=== PATIENT | female | born 1990 | race Caucasian/White ===

== ENCOUNTER 2018-11-21 20:02 | Observation (INO) | payer OTHER ==
[2018-11-21 20:57] LABS: Amphetamine,Urine NEGATIVE (NEGATIVE); Barbiturate,Urine NEGATIVE (NEGATIVE); Benzodiazepine,Urine NEGATIVE (NEGATIVE); Cocaine,Urine NEGATIVE (NEGATIVE); Methadone,Urine NEGATIVE (NEGATIVE); Opiate,Urine NEGATIVE (NEGATIVE); PCP,Urine NEGATIVE (NEGATIVE); THC,Urine NEGATIVE (NEGATIVE)
[2018-11-21 21:04] LABS: Appearance CLEAR (CLEAR); Bilirubin NEGATIVE (NEGATIVE); Blood NEGATIVE Ery/ul (0-5); Epithelial Cells RARE /HPF (FEW); Glucose NEGATIVE (NEGATIVE); Ketones NEGATIVE (NEGATIVE); Leukocyte Esterase NEGATIVE (NEGATIVE); Mucus SLIGHT /HPF (NEGATIVE); Nitrite NEGATIVE (NEGATIVE); Protein,Urine Dip NEGATIVE (Negative); Specific Gravity 1.017 (1.005-1.025); Urobilinogen 2 mg/dL (0-1)
[2018-11-22 00:53] VITALS: BP 109/68; PULSE 87
== END 2018-11-22 00:45 | disposition home or self-care (01) ==
LOC: OB 20:02
PROVIDERS: ADMIT Family Medicine; ATTEND Family Medicine
DX: Z34.83 Encounter for supervision of other normal pregnancy, third trimester (principal)
CPT/HCPCS: 80307; 81001; G0378

== ENCOUNTER 2018-12-18 10:58 | Observation (INO) | payer OTHER ==
[2018-12-18 12:32] VITALS: BP 114/72; PULSE 92
== END 2018-12-18 12:20 | disposition home or self-care (01) ==
LOC: UNDOADMOB 10:58 → OB 10:58 → UNDODISOB 12:20
PROVIDERS: ADMIT Family Medicine; ATTEND Family Medicine
DX: Z34.03 Encounter for supervision of normal first pregnancy, third trimester (principal)
CPT/HCPCS: 83986; G0378

== ENCOUNTER 2018-12-22 17:51 | Observation (INO) | payer OTHER ==
[2018-12-22 18:35] LABS: Appearance SLIGHTLY CLOUDY (CLEAR); Bacteria FEW /HPF (NEGATIVE); Bilirubin NEGATIVE (NEGATIVE); Blood NEGATIVE Ery/ul (0-5); Epithelial Cells MODERATE /HPF (FEW); Glucose NEGATIVE (NEGATIVE); Ketones SMALL (NEGATIVE); Leukocyte Esterase NEGATIVE (NEGATIVE); Mucus SLIGHT /HPF (NEGATIVE); Nitrite NEGATIVE (NEGATIVE); Protein,Urine Dip NEGATIVE (Negative); RBC 0-2 /HPF (0-2); Specific Gravity 1.014 (1.005-1.025); Urobilinogen NEGATIVE mg/dL (0-1)
[2018-12-22 19:10] VITALS: BP 110/75; PULSE 90
== END 2018-12-22 19:08 | disposition home or self-care (01) ==
LOC: OB 17:51
PROVIDERS: ADMIT Family Medicine; ATTEND Family Medicine
DX: Z34.83 Encounter for supervision of other normal pregnancy, third trimester (principal)
CPT/HCPCS: 81001; 87086; G0378

== ENCOUNTER 2019-01-01 02:18 | Observation (INO) | payer OTHER ==
[2019-01-01 03:22] LABS: Appearance SLIGHTLY CLOUDY (CLEAR); Bilirubin NEGATIVE (NEGATIVE); Blood NEGATIVE Ery/ul (0-5); Epithelial Cells RARE /HPF (FEW); Glucose NEGATIVE (NEGATIVE); Ketones NEGATIVE (NEGATIVE); Leukocyte Esterase NEGATIVE (NEGATIVE); Mucus SLIGHT /HPF (NEGATIVE); Nitrite NEGATIVE (NEGATIVE); Protein,Urine Dip NEGATIVE (Negative); Specific Gravity 1.008 (1.005-1.025); Urobilinogen NEGATIVE mg/dL (0-1)
[2019-01-01 07:36] VITALS: BP 100/65; PULSE 81
== END 2019-01-01 07:35 | disposition home or self-care (01) ==
LOC: OB 02:18
PROVIDERS: ADMIT Family Medicine; ATTEND Family Medicine
DX: Z34.83 Encounter for supervision of other normal pregnancy, third trimester (principal)
CPT/HCPCS: 81001; 83986; G0378

== ENCOUNTER 2019-02-02 12:40 | Observation (INO) | payer OTHER ==
[2019-02-02 13:20] VITALS: BP 118/84; PULSE 80
[2019-02-02 14:23] LABS: Appearance CLEAR (CLEAR); Bilirubin NEGATIVE (NEGATIVE); Blood NEGATIVE Ery/ul (0-5); Epithelial Cells RARE /HPF (FEW); Glucose NEGATIVE (NEGATIVE); Ketones NEGATIVE (NEGATIVE); Leukocyte Esterase NEGATIVE (NEGATIVE); Nitrite NEGATIVE (NEGATIVE); Protein,Urine Dip NEGATIVE (Negative); Specific Gravity 1.006 (1.005-1.025); Urobilinogen NEGATIVE mg/dL (0-1)
[2019-02-02 14:38] LABS: Amphetamine,Urine NEGATIVE (NEGATIVE); Barbiturate,Urine NEGATIVE (NEGATIVE); Benzodiazepine,Urine NEGATIVE (NEGATIVE); Cocaine,Urine NEGATIVE (NEGATIVE); Methadone,Urine NEGATIVE (NEGATIVE); Opiate,Urine NEGATIVE (NEGATIVE); PCP,Urine NEGATIVE (NEGATIVE); THC,Urine NEGATIVE (NEGATIVE)
== END 2019-02-02 14:40 | disposition home or self-care (01) ==
LOC: OB 12:40
PROVIDERS: ADMIT Family Medicine; ATTEND Family Medicine
DX: Z34.83 Encounter for supervision of other normal pregnancy, third trimester (principal)
CPT/HCPCS: 80307; 81001; G0378

== ENCOUNTER 2019-02-05 06:42 | Inpatient (IN) | payer OTHER ==
[2019-02-05] MEDS ORDERED: TYLENOL EXTRA STRENGTH 500 MG PO PRN ×2 (10:59→15:51)
[2019-02-05] MEDS ORDERED: Zofran 4 MG/2 ML VIAL IV PRN (10:59)
[2019-02-05] MEDS ORDERED: XYLOCAINE 1% HCL 20 ML MDV IJ PRN (10:59)
[2019-02-05] MEDS ORDERED: Phenergan 25 MG INJ IV PRN (10:59)
[2019-02-05] MEDS ORDERED: Nubain 10 MG/ML IV PRN (10:59)
[2019-02-05] MEDS ORDERED: STADOL 2 MG IV PRN (10:59)
[2019-02-05] MEDS ORDERED: OB EPIDURAL NAROPIN/SUFENTANIL IN NACL EPIDURAL PRN (10:59)
[2019-02-05] MEDS ORDERED: Ephedrine Sulfate 50 MG/ML IV PRN (10:59)
[2019-02-05] MEDS ORDERED: Lactated Ringers 1,000 ML IV ONE (10:59)
[2019-02-05] MEDS ORDERED: PITOCIN 30 UNITS/ LR 500 ML 500 ML IV SCH (11:00)
[2019-02-05] MEDS ORDERED: Lactated Ringers 1,000 ML IV SCH (11:00)
[2019-02-05 11:52] LABS: Hematocrit 37.1 % (35-47); Hemoglobin 11.7 gm/dl (12.0-16.0); Mean Corpuscular Hemoglobin 28.3 pg (26-32); Mean Corpuscular Hgb Concent. 31.5 g/dl (32-36); Mean Platelet Volume 12.5 fl (6-9.5); Platelet Count 205 K/mm3 (150-450); Red Blood Count 4.12 M/mm3 (4.1-5.4); Red Cell Distribution Width 13.3 % (11.5-14.0); White Blood Count 15.9 K/mm3 (4.0-10.5)
[2019-02-05 13:01] LABS: Lymphocytes 20 % (24-44); Monocyte 2 % (0.0-12.0); Neutrophils 78 % (36.0-66.0); Total Cells Counted 100
[2019-02-05 13:02] LABS: Platelet Estimate NORMAL (NORMAL)
[2019-02-05] MEDS ORDERED: Mylicon 80MG PO PRN (15:51)
[2019-02-05] MEDS ORDERED: TUCKS TP PRN (15:51)
[2019-02-05] MEDS ORDERED: Dulcolax 10 MG SUPP PR PRN (15:51)
[2019-02-05] MEDS ORDERED: Ambien 10 MG PO PRN (15:51)
[2019-02-05] MEDS ORDERED: LANSINOH 40 GM TOP PRN (15:51)
[2019-02-05] MEDS ORDERED: Dermoplast Spray TP PRN (15:51)
[2019-02-05] MEDS ORDERED: CORTISONE 1% CREAM TP PRN (15:51)
[2019-02-05] MEDS ORDERED: Anucort-HC SUPPOSITORY PR PRN (15:51)
[2019-02-05] MEDS: MOTRIN 400 MG PO PRN (20:23)
[2019-02-05] MEDS: Colace 100 MG PO SCH (22:18)
[2019-02-06] MEDS ORDERED: MOTRIN 400 MG ONE (04:05)
[2019-02-06] MEDS: MOTRIN 400 MG PO PRN ×2 (04:06→18:17)
[2019-02-06 05:55] LABS: Hematocrit 30.7 % (35-47); Hemoglobin 9.6 gm/dl (12.0-16.0); Mean Cell Volume 91.1 fl (78-100); Mean Corpuscular Hgb Concent. 31.3 g/dl (32-36); Platelet Count 201 K/mm3 (150-450); Red Blood Count 3.37 M/mm3 (4.1-5.4); Red Cell Distribution Width 13.2 % (11.5-14.0); White Blood Count 16.1 K/mm3 (4.0-10.5)
[2019-02-06 05:58] LABS: Mean Corpuscular Hemoglobin 28.4 pg (26-32)
[2019-02-06 06:44] LABS: ANISOCYTOSIS 1+; Lymphocytes 24 % (24-44); Monocyte 3 % (0.0-12.0); Neutrophils 73 % (36.0-66.0); Platelet Estimate NORMAL (NORMAL); Total Cells Counted 100; Toxic Granulation 1+
[2019-02-06] MEDS: NORCO 5/325 MG PO PRN ×2 (07:21→22:29)
[2019-02-06] MEDS ORDERED: NORCO 5/325 MG ONE (07:21)
[2019-02-06] MEDS: Colace 100 MG PO SCH ×2 (10:10→22:30)
[2019-02-06] MEDS: FERREX 150 PO SCH (10:10)
[2019-02-06 20:19] VITALS: O2SAT 97
[2019-02-07] MEDS: MOTRIN 400 MG PO PRN (05:01)
--- NOTE | 2019-02-07 07:54 | PCM.DS ---
Discharge Summary Date of Admission: 02/05/19 10:52 Admitting Physician: TAMARA MAURER Consults: Consults on Case 02/05/19 11:02 Notify Anesthesia Provider PRN 02/05/19 15:51 Notify Physician ROUTINE Primary Care Provider: TAMARA MAURER Allergies Allergies No Known Drug Allergies Allergy (Verified 02/02/19 14:06) Hospital Summary - Hospital Course Hospital Course: arrived in labor at 40 wks, had uncomplicated vaginal delivery. doing well , . no problems or concerns. - Vitals & Intake/Output Vital Signs: Vital Signs Temperature 97.7 F 02/07/19 02:00 Pulse Rate 78 02/07/19 02:00 Respiratory Rate 16 02/07/19 02:00 Blood Pressure 106/63 02/07/19 02:00 O2 Sat by Pulse Oximetry 97 02/06/19 20:00 Intake & Output: Intake & Output 02/04/19 02/05/19 02/06/19 02/07/19 11:59 11:59 11:59 11:59 Output Total 75 Balance -75 Weight 74.843 kg - Lab Result Diagrams: 02/06/19 05:00 - Procedures and Test Procedures and Tests throughout Hospitalization: Therapy Orders & Screens 02/05/19 16:33 Standby Routine Comment: Diagnosis: labor Discharge Exam General Appearance: no apparent distress, alert Skin Exam: normal color, warm, dry Respiratory Exam: normal breath sounds, lungs clear, No respiratory distress Cardiovascular Exam: regular rate/rhythm, normal heart sounds Gastrointestinal/Abdomen Exam: soft, No tenderness, No mass Extremity Exam: normal inspection, normal range of motion Final Diagnosis/Problem List - Final Discharge Diagnosis/Problem (1) Vaginal delivery Current Visit: Yes Status: Acute Code(s): O80 - ENCOUNTER FOR FULL-TERM UNCOMPLICATED DELIVERY - Discharge Disposition: Home, Self-Care Condition: Stable Prescriptions: Continue Vits W-Ca,Fe,FA(<1Mg) [] 1 each PO DAILY #30 tablet Follow up with: TAMARA MAURER MD [Primary Care Provider] - 1 Week
[2019-02-07] MEDS: Colace 100 MG PO SCH (08:36)
[2019-02-07] MEDS: FERREX 150 PO SCH (08:36)
[2019-02-07 08:54] VITALS: BP 115/75; PULSE 75
== END 2019-02-07 15:05 | disposition home or self-care (01) | DRG 807 ==
LOC: OB 06:42 → OBSVTOIN 10:52
PROVIDERS: ADMIT Family Medicine; ATTEND Family Medicine
PROC: 10E0XZZ Delivery of Products of Conception, External Approach (ICD-10-PCS; principal; 2019-02-05)
DX: O69.81X0 Labor and delivery complicated by cord around neck, without compression, not applicable or unspecified (principal); Z37.0 Single live birth; Z3A.40 40 weeks gestation of pregnancy
CPT/HCPCS: 36415; 80307; 81001; 81003; 85025; 94799; G0378; J2590; J2795; A9270-GY

== ENCOUNTER 2019-02-23 15:35 | Emergency (ER) | payer OTHER ==
[2019-02-23 16:33] VITALS: O2SAT 96
[2019-02-23] MEDS ORDERED: TORAdol 30 mg Injection IM ONE (16:46)
[2019-02-23] MEDS ORDERED: TORAdol 30 mg Injection ONE (16:53)
--- NOTE | 2019-02-23 16:58 | ERPHSYRPT ---
- History of Present Illness Time Seen by Provider: 02/23/19 16:30 Source: patient Exam Limitations: clinical condition Patient Subjective Stated Complaint: headache starting at 1400 today.. has had headaches in the past due to her eyeglass preascription.. states this feels different. light bothers her eyes. pain in her right upper arm. no injury. Triage Nursing Assessment: alert and in no distress. states GLASER starting at 1400. pain in forehead and back of head. eyes sensitive to light. ROMULO. neuro intact. states pain in right upper arm.. 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 DENIES BLURRED VISION, PHOTOPHOBIA, FEVER, VOMITING, OR NECK STIFFNESS. HAS FREQUENT HEADACHES WEEKLY FOR YEARS. Timing/Duration: day(s) Quality: throbbing Head Pain Location: frontal, occipital Severity of Pain-Max: moderate Severity of Pain-Current: moderate Recent Head Trauma: frequent headaches Modifying Factors: Improves With: exposure to light Associated Symptoms: nausea/vomiting Previous symptoms: same symptoms as today Allergies/Adverse Reactions: No Known Drug Allergies Allergy (Verified 02/02/19 14:06) Immunizations Up to Date: Yes - Review of Systems Constitutional: No Fever, No Chills Eyes: No Symptoms Ears, Nose, & Throat: No Symptoms Respiratory: No Symptoms, No Cough, No Dyspnea Cardiac: Orthopnea, No Chest Pain, No Edema, No Syncope Abdominal/Gastrointestinal: Nausea, No Abdominal Pain, No Vomiting, No Diarrhea Genitourinary Symptoms: No Dysuria Musculoskeletal: No Symptoms, No Back Pain, No Neck Pain Skin: No Rash Neurological: Headache, No Dizziness, No Focal Weakness, No Sensory Changes Psychological: No Symptoms Endocrine: No Symptoms All Other Systems: Reviewed and Negative - Past Medical History Pertinent Past Medical History: Yes Neurological History: No Pertinent History ENT History: No Pertinent History Cardiac History: No Pertinent History Respiratory History: No Pertinent History Endocrine Medical History: No Pertinent History Musculoskeletal History: Fractures GI Medical History: No Pertinent History History: No Pertinent History Psycho-Social History: Bipolar Female Reproductive Disorders: No Pertinent History Other Medical History: RIGHT ARM BREAK 2009 - Past Surgical History Past Surgical History: Yes Neuro Surgical History: No Pertinent History Cardiac: No Pertinent History Respiratory: No Pertinent History Gastrointestinal: No Pertinent History Genitourinary: No Pertinent History Musculoskeletal: No Pertinent History Female Surgical History: Other Other Surgical History: LAPROSCOPIC IUD REMOVAL 09/2013 , BREAST AUGMENTATION 2017 - Social History Smoking Status: Never smoker Exposure to second hand smoke: No Drug Use: none Patient Lives Alone: No - Female History Hx Now: No - Nursing Vital Signs Nursing Vital Signs: Initial Vital Signs Temperature 97.6 F 02/23/19 16:23 Pulse Rate 84 02/23/19 16:23 Respiratory Rate 16 02/23/19 16:23 Blood Pressure 118/75 02/23/19 16:23 O2 Sat by Pulse Oximetry 96 02/23/19 16:23 Pain Scale Pain Intensity 3 - Physical Exam General Appearance: no apparent distress Eye Exam: PERRL/EOMI Ears, Nose, Throat Exam: normal ENT inspection, moist mucous membranes Neck Exam: normal inspection, supple, full range of motion, No meningismus Respiratory Exam: normal breath sounds, lungs clear Cardiovascular Exam: regular rate/rhythm, normal heart sounds Gastrointestinal/Abdominal Exam: soft, No tenderness, No distention Back Exam: normal inspection, normal range of motion Extremity Exam: normal inspection Mental Status Exam: alert, oriented 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, 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: normal speech, PERRL, No facial droop Coordination/Gait Exam: normal cerebellar function Motor/Sensory Exam: no motor deficit, no sensory deficit DTR Exam: bicep (R): 2+, bicep (L): 2+, tricep (R): 2+, tricep (L): 2+, knee (R) : 2+, knee (L): 2+, ankle (R): 2+ Skin Exam: normal color, warm, dry, No rash SpO2 Interpretation: normal SpO2: 96 - CT Exams Head CT Interpretation: Discussed w/radiologist, No/Intracranial Hemorrhag Ordered Tests: Active Orders 24 hr Category Date Time Status HEAD WITHOUT CONTRAST [CT] Stat Exams 02/23/19 16:51 Completed Medication Summary Discontinued Medications Generic Name Dose Route Start Last Admin Trade Name Freq PRN Reason Stop Dose Admin Ketorolac Tromethamine 60 mg 02/23/19 16:46 02/23/19 16:59 Toradol 30 Mg Injection IM 02/23/19 16:47 60 mg STAT ONE Administration Ketorolac Tromethamine Confirm 02/23/19 16:53 Toradol 30 Mg Injection Administered 02/23/19 16:54 Dose 60 mg .ROUTE .STK-MED ONE - Progress Progress: improved, re-examined Progress Note: 02/23/19 18:39 ADMINISTERED TORADOL 60MG IM Counseled pt/family regarding: diagnosis, need for follow-up - Departure Departure Disposition: Home Clinical Impression: ACUTE CEPHALGIA Condition: Stable Critical Care Time: No Referrals: TAMARA MAURER MD [Primary Care Provider] - Additional Instructions: BEGIN FIORINAL EVERY 4 HOURS FOR HEADACHES NEEDED. CONSULT YOUR PRIMARY CARE PROVIDER FOR FOLLOWUP IN 1 WEEK. Prescriptions: Butalbital/Aspirin/Caffeine [Fiorinal 50-325-40 mg Capsule] 1 each PO Q4-6HPRN PRN #12 capsule PRN Reason: Pain
--- NOTE | 2019-02-23 17:21 | XRAY ---
Indication: Headache. Multiple contiguous axial images obtained through the head without contrast. Comparison: None Normal appearing brain parenchyma, ventricles, and bony calvarium. Visualized paranasal sinuses and mastoid air cells are clear. Impression: Normal CT head without contrast exam. CTDI 70.55
[2019-02-23 19:13] VITALS: BP 114/83; PULSE 76
== END 2019-02-23 19:12 | disposition home or self-care (01) ==
LOC: ED 15:35
DX: R51 Headache (principal)
CPT/HCPCS: 70450; 96372; 99284; J1885

== ENCOUNTER 2019-06-02 10:06 | Emergency (ER) | payer OTHER ==
--- NOTE | 2019-06-02 10:26 | ERPHSYRPT ---
- History of Present Illness Time Seen by Provider: 06/02/19 10:24 Source: patient Physician History: mild burning urination, frequency and urgency off and on for one week, no fever , pt denies passing stool through the vagina Allergies/Adverse Reactions: No Known Drug Allergies Allergy (Verified 04/15/19 12:26) Home Medications: Norgestimate-Ethinyl Estradiol [Tri-Sprintec] 1 each PO DAILY 06/02/19 [History] - Review of Systems Constitutional: No Fever Respiratory: No Dyspnea Abdominal/Gastrointestinal: No Abdominal Pain Musculoskeletal: No Back Pain Skin: No Skin Lesions Neurological: No Dizziness - Past Medical History Pertinent Past Medical History: Yes Neurological History: No Pertinent History ENT History: No Pertinent History Cardiac History: No Pertinent History Respiratory History: No Pertinent History Endocrine Medical History: No Pertinent History Musculoskeletal History: Fractures GI Medical History: No Pertinent History History: No Pertinent History Psycho-Social History: Bipolar Female Reproductive Disorders: No Pertinent History Other Medical History: RIGHT ARM BREAK 2009 - Past Surgical History Past Surgical History: Yes Neuro Surgical History: No Pertinent History Cardiac: No Pertinent History Respiratory: No Pertinent History Gastrointestinal: No Pertinent History Genitourinary: No Pertinent History Musculoskeletal: No Pertinent History Female Surgical History: Other Other Surgical History: LAPROSCOPIC IUD REMOVAL 09/2013 , BREAST AUGMENTATION 2017 - Social History Smoking Status: Never smoker Exposure to second hand smoke: No Drug Use: none Patient Lives Alone: No - Nursing Vital Signs Nursing Vital Signs: Initial Vital Signs Temperature 98.4 F 06/02/19 10:16 Pulse Rate 93 H 06/02/19 10:16 Respiratory Rate 20 06/02/19 10:16 Blood Pressure 140/93 06/02/19 10:16 O2 Sat by Pulse Oximetry 97 06/02/19 10:16 Pain Scale Pain Intensity 4 - Physical Exam General Appearance: no apparent distress Respiratory Exam: No respiratory distress Cardiovascular Exam: regular rate/rhythm Gastrointestinal/Abdomen Exam: soft, No rebound Back Exam: No CVA tenderness Extremity Exam: normal range of motion Neurologic Exam: alert, oriented x 3 Skin Exam: warm, dry - Course Nursing assessment & vital signs reviewed: Yes - CT Exams Abdomen/Pelvis CT Interpretation: Discussed w/radiologist, Other (possible passed renal stone, or recto-vaginal fistula) Ordered Tests: Active Orders 24 hr Category Date Time Status ABDOMEN AND PELVIS W/0 CONTRAS [CT] Stat Exams 06/02/19 11:18 Completed CULTURE,URINE Stat Lab 06/02/19 10:39 Received HCG,QUALITATIVE URINE Stat Lab 06/02/19 10:39 Completed UA W/RFX UR CULTURE Stat Lab 06/02/19 10:39 Completed Medication Summary Discontinued Medications Generic Name Dose Route Start Last Admin Trade Name Christian PRN Reason Stop Dose Admin Ketorolac Tromethamine 30 mg 06/02/19 10:54 06/02/19 11:20 Toradol 30 Mg Injection IM 06/02/19 10:55 30 mg STAT ONE Administration Ketorolac Tromethamine Confirm 06/02/19 11:10 Toradol 30 Mg Injection Administered 06/02/19 11:11 Dose 30 mg .ROUTE .STK-MED ONE Lab/Rad Data: Laboratory Results 06/02/19 06/02/19 Range/Units 10:39 10:39 Urine Color YELLOW (YELLOW) Urine Appearance SLIGHTLY CLOUDY (CLEAR) Urine pH 5.0 (5-6) Ur Specific [place] 1.013 (1.005-1.025) Urine Protein NEGATIVE (Negative) Urine Ketones NEGATIVE (NEGATIVE) Urine Blood LARGE (0-5) Too/ul Urine Nitrite NEGATIVE (NEGATIVE) Urine Bilirubin NEGATIVE (NEGATIVE) Urine Urobilinogen NEGATIVE (0-1) mg/dL Ur Leukocyte Esterase MODERATE (NEGATIVE) Urine WBC (Auto) >100 (0-5) /HPF Urine RBC (Auto) 11-15 (0-2) /HPF U Epithel Cells (Auto) FEW (FEW) /HPF Urine Bacteria (Auto) FEW (NEGATIVE) /HPF Urine Mucus (Auto) SLIGHT (NEGATIVE) /HPF Urine Culture Reflexed YES (NO) Urine Glucose NEGATIVE (NEGATIVE) mg/dL Urine HCG, Qual NEGATIVE (Negative) - Progress Progress: unchanged Air Movement: good Progress Note: 06/02/19 12:[address] Maurer return if worse, differential d/w pt as uti, cancer, fistula, dysfunctional uterine bleeding Discussed with : Atif Will see patient in: office Counseled pt/family regarding: lab results, diagnosis, need for follow-up, rad results - Departure Departure Disposition: Home Clinical Impression: UTI (urinary tract infection) Qualifiers: Urinary tract infection type: acute cystitis Hematuria presence: with hematuria Qualified Code(s): N30.01 - Acute cystitis with hematuria Condition: Stable Critical Care Time: No Referrals: TAMARA MAURER MD [Primary Care Provider] - Instructions: Urinary Tract Infection, Adult (DC) Prescriptions: Cephalexin Mh 500 mg [Keflex 500 mg] 1 cap PO QID #40 capsule
[2019-06-02 10:48] LABS: Appearance SLIGHTLY CLOUDY (CLEAR); Bacteria FEW /HPF (NEGATIVE); Bilirubin NEGATIVE (NEGATIVE); Blood LARGE Ery/ul (0-5); Epithelial Cells FEW /HPF (FEW); Glucose NEGATIVE (NEGATIVE); Ketones NEGATIVE (NEGATIVE); Leukocyte Esterase MODERATE (NEGATIVE); Mucus SLIGHT /HPF (NEGATIVE); Nitrite NEGATIVE (NEGATIVE); Protein,Urine Dip NEGATIVE (Negative); Specific Gravity 1.013 (1.005-1.025); Urobilinogen NEGATIVE mg/dL (0-1); WBC >100 /HPF (0-5)
[2019-06-02] MEDS ORDERED: TORAdol 30 mg Injection IM ONE (10:54)
[2019-06-02] MEDS ORDERED: TORAdol 30 mg Injection ONE (11:10)
--- NOTE | 2019-06-02 11:48 | XRAY ---
Indication: Lower pelvic pain. Blood in urine. Multiple contiguous axial images obtained through the abdomen and pelvis without contrast using renal stone protocol. Comparison: None Lung bases are clear. Heart is not enlarged. Partially visualized bilateral breast implants. No renal calculus in either system. Minimal right hydronephrosis and mild right ureter prominence possibly from recent passage of calculus. Tiny cul-de-sac fluid presumed from rupture/leaking cyst. Vaginal canal demonstrates intraluminal densities similar in appearance to feces. Noncontrasted stomach and bowel loops appear nonobstructed. Normal appendix. There is mild diffuse scattered colonic fecal debris throughout. Spleen is borderline enlarged measuring 12.5 cm in greatest axial dimension. Remaining liver, gallbladder, pancreas, spleen, adrenal glands, kidneys, ureters, bladder, uterus, and aorta appear unremarkable for noncontrast exam. Osseous structures intact. Impression: 1. Negative renal calculus. Incidental minimal right hydronephrosis and right ureter prominence possibly from recent passage of calculus. 2. Vaginal canal densities as detailed. Rule out rectovaginal fistula. Correlate with pelvic exam. 3. Diffuse fecal stasis without obstruction. 4. Tiny cul-de-sac fluid presumed physiologic. 5. Borderline splenomegaly. CT DI 16.55
[2019-06-02 12:25] VITALS: BP 132/82; PULSE 88; O2SAT 99
== END 2019-06-02 12:25 | disposition home or self-care (01) ==
LOC: ED 10:06
DX: N30.01 Acute cystitis with hematuria (principal)
CPT/HCPCS: 74176; 81001; 84703; 87077; 87086; 87186; 96372; 99284; J1885

== ENCOUNTER 2020-05-07 08:12 | Emergency (ER) | payer SELFPAY ==
[2020-05-07 08:18] VITALS: BP 110/82; PULSE 77; O2SAT 99
[2020-05-07] MEDS ORDERED: TORAdol 30 mg Injection IV ONE (08:30)
--- NOTE | 2020-05-07 08:34 | ERPHSYRPT ---
- History of Present Illness Time Seen by Provider: 05/07/20 08:21 Historian: patient Exam Limitations: no limitations Patient Subjective Stated Complaint: PT states "I have been having chest pain since yesterday morning. I went to [facility] care and they sent me here. It really hurts when I move. I have been having more and more anxiety attacks lately." Triage Nursing Assessment: Pt presented alert and oriented X 3, skin pwd Pt ambulates with an upright steady gait, able to speak in clear full sentences pt has tenderness when chest is palpated in the center of the chest. Physician History: 30 years old female with history of anxiety/panic attacks presented in the ER with chief complaint of anterior chest pain since yesterday morning which woke her up from sleep. Constant moderate intensity, sharp in nature, aggravated with deep breathing coughing twisting and better with being still. Denies any shortness of breath or palpitations. 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 Denies any fever chills. She has not taken anything at home. Was seen at urgent care today and is sent in here for further evaluation. Timing/Duration: yesterday, sudden Activities at Onset: sleep Quality: sharpness Location: substernal Chest Pain Radiation: no radiation Severity of Pain-Max: moderate Severity of Pain-Current: moderate Modifying Factors: Improves With: breathing, coughing, movement, rest Associated Symptoms: denies symptoms Prior Chest Pain/Cardiac Workup: no prior cardiac workup Nitro Today/Relief: no nitro taken today Aspirin Treatment Today: no aspirin today Allergies/Adverse Reactions: No Known Drug Allergies Allergy (Verified 04/15/19 12:26) Home Medications: Aripiprazole 10 mg [Abilify 10 MG] 10 mg PO DAILY 05/07/20 [History] Hx Tetanus, Diphtheria Vaccination/Date Given: Yes Hx Influenza Vaccination/Date Given: Yes Hx Pneumococcal Vaccination/Date Given: No Immunizations Up to Date: Yes Travel Risk - International Travel Have you traveled outside of the country in past 3 weeks: No - Coronavirus Screening Are you exhibiting any of the following symptoms?: No Close contact with a COVID-19 positive Pt in past 14-21 Days: No - Review of Systems Constitutional: No Symptoms Eyes: No Symptoms Ears, Nose, & Throat: No Symptoms Respiratory: No Symptoms Cardiac: Chest Pain Abdominal/Gastrointestinal: No Symptoms Genitourinary Symptoms: No Symptoms Musculoskeletal: No Symptoms Skin: No Symptoms Neurological: No Symptoms Psychological: No Symptoms Endocrine: No Symptoms Hematologic/Lymphatic: No Symptoms Immunological/Allergic: No Symptoms - Past Medical History Pertinent Past Medical History: Yes Neurological History: No Pertinent History ENT History: No Pertinent History Cardiac History: No Pertinent History Respiratory History: No Pertinent History Endocrine Medical History: No Pertinent History Musculoskeletal History: Fractures GI Medical History: No Pertinent History History: No Pertinent History Psycho-Social History: Bipolar Female Reproductive Disorders: No Pertinent History Other Medical History: RIGHT ARM BREAK 2009 - Past Surgical History Past Surgical History: Yes Neuro Surgical History: No Pertinent History Cardiac: No Pertinent History Respiratory: No Pertinent History Gastrointestinal: No Pertinent History Genitourinary: No Pertinent History Musculoskeletal: No Pertinent History Female Surgical History: Other Other Surgical History: LAPROSCOPIC IUD REMOVAL 09/2013 , BREAST AUGMENTATION 2017 - Social History Smoking Status: Never smoker Exposure to second hand smoke: No Drug Use: none Patient Lives Alone: No - Female History Hx Last Menstrual Period: 04/30/2020 Hx Now: No - Nursing Vital Signs Nursing Vital Signs: Initial Vital Signs Temperature 98.3 F 05/07/20 08:13 Pulse Rate 80 05/07/20 08:13 Respiratory Rate 20 05/07/20 08:13 Blood Pressure 110/82 05/07/20 08:13 O2 Sat by Pulse Oximetry 99 05/07/20 08:13 Pain Scale Pain Intensity 8 - Physical Exam General Appearance: no apparent distress, alert, anxiety Eye Exam: PERRL/EOMI, eyes nml inspection Ears, Nose, Throat Exam: normal ENT inspection, pharynx normal Neck Exam: normal inspection, non-tender, supple, full range of motion Respiratory Exam: normal breath sounds, chest tenderness (Anterior sternal and parasternal area), lungs clear, No respiratory distress Cardiovascular Exam: regular rate/rhythm, normal heart sounds Gastrointestinal/Abdomen Exam: soft, No tenderness Back Exam: normal inspection Extremity Exam: normal inspection, normal range of motion Neurologic Exam: alert, oriented x 3, cooperative Skin Exam: normal color SpO2 Interpretation: normal SpO2: 99 O2 Delivery: Room Air - Course Nursing assessment & vital signs reviewed: Yes EKG Interpreted by Me: RATE (73), Sinus Rhythm, NORMAL AXIS, NORMAL INTERVALS, NORMAL QRS Ordered Tests: Active Orders 24 hr Category Date Time Status EKG-ER Only STAT Care 05/07/20 08:30 Completed IV Insertion STAT Care 05/07/20 08:30 Completed CBC W DIFF Stat Lab 05/07/20 08:35 Completed CMP Stat Lab 05/07/20 08:35 Completed D-DIMER QUANTITATIVE Stat Lab 05/07/20 08:35 Completed TROPONIN Q3H Lab 05/07/20 08:35 Completed TROPONIN Q3H Lab 05/07/20 11:30 Ordered TROPONIN Q3H Lab 05/07/20 14:30 Ordered TROPONIN Q3H Lab 05/07/20 17:30 Ordered TROPONIN Q3H Lab 05/07/20 20:30 Ordered Medication Summary Discontinued Medications Generic Name Dose Route Start Last Admin Trade Name Freq PRN Reason Stop Dose Admin Ketorolac Tromethamine 30 mg 05/07/20 08:30 Toradol 30 Mg Injection IV 05/07/20 08:31 STAT ONE Lab/Rad Data: Laboratory Result Diagrams 05/07/20 08:35 05/07/20 08:35 Laboratory Results 05/07/20 05/07/20 05/07/20 Range/Units 08:35 08:35 08:35 WBC (4.0-10.5) K/mm3 RBC (4.1-5.4) M/mm3 Hgb (12.0-16.0) gm/dl Hct (35-47) % MCV (78-100) fl MCH (26-32) pg MCHC (32-36) g/dl RDW (11.5-14.0) % Plt Count (150-450) K/mm3 MPV (7.5-11.0) fl Gran % (36.0-66.0) % Eos # (Auto) (0-0.5) Absolute Lymphs (auto) (1.0-4.6) Absolute Monos (auto) (0.0-1.3) Lymphocytes % (24.0-44.0) % Monocytes % (0.0-12.0) % Eosinophils % (0.00-5.0) % Basophils % (0.0-0.4) % Absolute Granulocytes (1.4-6.9) Basophils # (0-0.4) D-Dimer < 215 L (215-500) ng/mL Sodium 140 (137-145) mmol/L Potassium 4.4 (3.5-5.1) mmol/L Chloride 106 (98-107) mmol/L Carbon Dioxide 25 (22-30) mmol/L Anion Gap 13.5 (5-15) MEQ/L BUN 16 (7-17) mg/dL Creatinine 0.66 (0.52-1.04) mg/dL Estimated GFR > 60.0 ML/MIN Glucose 98 (74-106) mg/dL Calcium 9.4 (8.4-10.2) mg/dL Total Bilirubin 0.50 (0.2-1.3) mg/dL AST 29 (14-36) U/L ALT 25 (0-35) U/L Alkaline Phosphatase 83 (38-126) U/L Troponin I < 0.012 (0.000-0.034) ng/mL Serum Total Protein 8.3 H (6.3-8.2) g/dL Albumin 4.8 (3.5-5.0) g/dL 05/07/20 Range/Units 08:35 WBC 7.4 (4.0-10.5) K/mm3 RBC 4.69 (4.1-5.4) M/mm3 Hgb 13.6 (12.0-16.0) gm/dl Hct 42.9 (35-47) % MCV 91.5 (78-100) fl MCH 29.0 (26-32) pg MCHC 31.7 L (32-36) g/dl RDW 12.7 (11.5-14.0) % Plt Count 303 (150-450) K/mm3 MPV 10.9 (7.5-11.0) fl Gran % 53.7 (36.0-66.0) % Eos # (Auto) 0.18 (0-0.5) Absolute Lymphs (auto) 2.79 (1.0-4.6) Absolute Monos (auto) 0.44 (0.0-1.3) Lymphocytes % 37.6 (24.0-44.0) % Monocytes % 5.9 (0.0-12.0) % Eosinophils % 2.4 (0.00-5.0) % Basophils % 0.4 (0.0-0.4) % Absolute Granulocytes 3.99 (1.4-6.9) Basophils # 0.03 (0-0.4) D-Dimer (215-500) ng/mL Sodium (137-145) mmol/L Potassium (3.5-5.1) mmol/L Chloride (98-107) mmol/L Carbon Dioxide (22-30) mmol/L Anion Gap (5-15) MEQ/L BUN (7-17) mg/dL Creatinine (0.52-1.04) mg/dL Estimated GFR ML/MIN Glucose (74-106) mg/dL Calcium (8.4-10.2) mg/dL Total Bilirubin (0.2-1.3) mg/dL AST (14-36) U/L ALT (0-35) U/L Alkaline Phosphatase (38-126) U/L Troponin I (0.000-0.034) ng/mL Serum Total Protein (6.3-8.2) g/dL Albumin (3.5-5.0) g/dL - Progress Progress: unchanged Air Movement: good Progress Note: 05/07/20 09:00 30 years old is evaluated for reproducible anterior chest wall pain since yesterday. EKG showed normal sinus rhythm with no acute ST changes suggesting ischemia. I have ordered chest x-ray and urine along with other chest pain work-up but patient got upset about getting urine hCG as she says that she is not . She was told that that is part of the protocol, patient says you are checking drugs and urine. Patient is assured but she does not want to have anything done now and wants to go home. Discussed with patient in detail about the risk of leaving AGAINST MEDICAL ADVICE without full work-up which he totally understands and wants to leave. Patient is not altered co nfused at all. She is somewhat anxious. Patient walked out of the ER in a stable condition. Blood Culture(s) Obtained: No Antibiotics given: No Counseled pt/family regarding: diagnosis, need for follow-up - Departure Departure Disposition: AMA Clinical Impression: Chest pain Qualifiers: Chest pain type: unspecified Qualified Code(s): R07.9 - Chest pain, unspecified Condition: Stable Critical Care Time: No Referrals: TAMARA MAURER MD [Primary Care Provider] - (1-2 days for re evaluation) Instructions: Chest Pain (DC)
[2020-05-07 08:58] LABS: Absolute Neutrophil Ct (ANC) 3.99 (1.4-6.9); BASOPHIL % 0.4 % (0.0-0.4); Basophil (Absolute #) 0.03 (0-0.4); Eosinophil % 2.4 % (0.00-5.0); Eosinophil (Absolute #) 0.18 (0-0.5); Hematocrit 42.9 % (35-47); Hemoglobin 13.6 gm/dl (12.0-16.0); Lymphocyte (Absolute #) 2.79 (1.0-4.6); Lymphocytes % 37.6 % (24.0-44.0); Mean Cell Volume 91.5 fl (78-100); Mean Corpuscular Hgb Concent. 31.7 g/dl (32-36); Mean Platelet Volume 10.9 fl (7.5-11.0); Monocyte (Absolute #) 0.44 (0.0-1.3); Monocytes % 5.9 % (0.0-12.0); Neutrophil % 53.7 % (36.0-66.0); Platelet Count 303 K/mm3 (150-450); Red Blood Count 4.69 M/mm3 (4.1-5.4); Red Cell Distribution Width 12.7 % (11.5-14.0); White Blood Count 7.4 K/mm3 (4.0-10.5)
[2020-05-07 09:13] LABS: ALBUMIN 4.8 g/dL (3.5-5.0); ALKALINE PHOSPHATASE 83 U/L (38-126); ANION GAP 13.5 MEQ/L (5-15); BLOOD UREA NITROGEN 16 mg/dL (7-17); CHLORIDE 106 mmol/L (98-107); Calcium 9.4 mg/dL (8.4-10.2); Carbon Dioxide 25 mmol/L (22-30); Creatinine 1 0.66 mg/dL (0.52-1.04); Glucose 98 mg/dL (74-106); Potassium 4.4 mmol/L (3.5-5.1); SGOT/AST 29 U/L (14-36); SGPT/ALT 25 U/L (0-35); SODIUM 140 mmol/L (137-145); Total Protein 8.3 g/dL (6.3-8.2)
== END 2020-05-07 08:52 | disposition left against medical advice (07) ==
LOC: ED 08:12
DX: R07.9 Chest pain, unspecified (principal); F41.9 Anxiety disorder, unspecified
CPT/HCPCS: 36415; 80053; 84484; 85025; 85379; 99283

== ENCOUNTER 2020-05-07 09:22 | Emergency (ER) | payer SELFPAY ==
[2020-05-07] MEDS ORDERED: TORAdol 30 mg Injection IM ONE (09:31)
[2020-05-07] MEDS ORDERED: TORAdol 30 mg Injection ONE (09:32)
[2020-05-07 09:39] VITALS: O2SAT 98
--- NOTE | 2020-05-07 09:42 | ERPHSYRPT ---
- History of Present Illness Time Seen by Provider: 05/07/20 09:27 Historian: patient Exam Limitations: no limitations Physician History: 30 years old female presented in the ER with chief complaint of anterior chest wall pain since yesterday morning. Constant, sharp in nature, aggravated with movements palpation/deep breathing and better with being still. No difficulty breathing. No palpitations. Patient was seen in the ER less than an hour ago with EKG normal sinus rhythm, baseline chest pain labs were drawn but patient left AMA because she did not want to have her urine checked for . Patient comes back now to have chest x-ray done. Her troponin D-dimers and chemistries are within normal range. Normal white count. Patient chest pain is going on for more than 24-hour, constant, reproducible, do not think patient needs second troponin are any other work-up but x-rays. She has a low heart score and her pain is reproducible, I will obtain x-rays. Timing/Duration: yesterday, sudden Activities at Onset: rest, sleep Quality: sharpness Location: substernal Chest Pain Radiation: no radiation Severity of Pain-Max: moderate Severity of Pain-Current: mild Modifying Factors: Improves With: breathing, coughing, movement, palpation, rest Associated Symptoms: denies symptoms Prior Chest Pain/Cardiac Workup: no prior cardiac workup Nitro Today/Relief: no nitro taken today Aspirin Treatment Today: no aspirin today Allergies/Adverse Reactions: No Known Drug Allergies Allergy (Verified 04/15/19 12:26) Home Medications: Aripiprazole 10 mg [Abilify 10 MG] 10 mg PO DAILY 05/07/20 [History] Hx Tetanus, Diphtheria Vaccination/Date Given: Yes Hx Influenza Vaccination/Date Given: Yes Hx Pneumococcal Vaccination/Date Given: No - Review of Systems Constitutional: No Symptoms Eyes: No Symptoms Ears, Nose, & Throat: No Symptoms Respiratory: No Symptoms Cardiac: Chest Pain Abdominal/Gastrointestinal: No Symptoms Genitourinary Symptoms: No Symptoms Musculoskeletal: No Symptoms Skin: No Symptoms Neurological: No Symptoms Psychological: Anxiety Endocrine: No Symptoms Hematologic/Lymphatic: No Symptoms Immunological/Allergic: No Symptoms - Past Medical History Pertinent Past Medical History: Yes Neurological History: No Pertinent History ENT History: No Pertinent History Cardiac History: No Pertinent History Respiratory History: No Pertinent History Endocrine Medical History: No Pertinent History Musculoskeletal History: Fractures GI Medical History: No Pertinent History History: No Pertinent History Psycho-Social History: Bipolar Female Reproductive Disorders: No Pertinent History Other Medical History: RIGHT ARM BREAK 2009 - Past Surgical History Past Surgical History: Yes Neuro Surgical History: No Pertinent History Cardiac: No Pertinent History Respiratory: No Pertinent History Gastrointestinal: No Pertinent History Genitourinary: No Pertinent History Musculoskeletal: No Pertinent History Female Surgical History: Other Other Surgical History: LAPROSCOPIC IUD REMOVAL 09/2013 , BREAST AUGMENTATION 2017 - Social History Smoking Status: Never smoker Exposure to second hand smoke: No Drug Use: none Patient Lives Alone: No - Female History Hx Now: No - Nursing Vital Signs Nursing Vital Signs: Initial Vital Signs Temperature 98.3 F 05/07/20 09:26 Pulse Rate 59 L 05/07/20 09:26 Respiratory Rate 12 05/07/20 09:26 Blood Pressure 115/71 05/07/20 09:26 O2 Sat by Pulse Oximetry 98 05/07/20 09:26 Pain Scale Pain Intensity 5 - Physical Exam General Appearance: no apparent distress Eye Exam: PERRL/EOMI, eyes nml inspection Ears, Nose, Throat Exam: normal ENT inspection, pharynx normal Neck Exam: normal inspection, supple, full range of motion Respiratory Exam: normal breath sounds, chest tenderness (Here midsternal and parasternal area), lungs clear Cardiovascular Exam: regular rate/rhythm, normal heart sounds Gastrointestinal/Abdomen Exam: soft, No tenderness Back Exam: normal inspection Extremity Exam: normal inspection Neurologic Exam: alert, oriented x 3, cooperative Skin Exam: normal color SpO2 Interpretation: normal O2 Delivery: Room Air - Course Nursing assessment & vital signs reviewed: Yes Ordered Tests: Active Orders 24 hr Category Date Time Status Clean Catch Urine Specimen STAT Care 05/07/20 09:50 Active CHEST 2 VIEWS (PA AND LAT) Stat Exams 05/07/20 10:14 Completed HCG,QUALITATIVE URINE Stat Lab 05/07/20 09:32 Completed UA W/RFX UR CULTURE Stat Lab 05/07/20 09:32 Completed Urine Triage Profile Stat Lab 05/07/20 10:46 Ordered Medication Summary Discontinued Medications Generic Name Dose Route Start Last Admin Trade Name Freq PRN Reason Stop Dose Admin Ketorolac Tromethamine 30 mg 05/07/20 09:31 05/07/20 09:39 Toradol 30 Mg Injection IM 05/07/20 09:32 Not Given STAT ONE Ketorolac Tromethamine Confirm 05/07/20 09:32 Toradol 30 Mg Injection Administered 05/07/20 09:33 Dose 30 mg .ROUTE .STK-MED ONE Lab/Rad Data: Laboratory Results 05/07/20 05/07/20 Range/Units 09:32 09:32 Urine Color STRAW (YELLOW) Urine Appearance CLEAR (CLEAR) Urine pH 7.0 (5-6) Ur Specific [place] 1.008 (1.005-1.025) Urine Protein NEGATIVE (Negative) Urine Ketones NEGATIVE (NEGATIVE) Urine Blood NEGATIVE (0-5) Too/ul Urine Nitrite NEGATIVE (NEGATIVE) Urine Bilirubin NEGATIVE (NEGATIVE) Urine Urobilinogen NEGATIVE (0-1) mg/dL Ur Leukocyte Esterase NEGATIVE (NEGATIVE) Urine WBC (Auto) NONE (0-5) /HPF Urine RBC (Auto) NONE (0-2) /HPF U Epithel Cells (Auto) NONE (FEW) /HPF Urine Bacteria (Auto) NONE (NEGATIVE) /HPF Urine Mucus (Auto) SLIGHT (NEGATIVE) /HPF Urine Culture Reflexed NO (NO) Urine Glucose NEGATIVE (NEGATIVE) mg/dL Urine HCG, Qual NEGATIVE (Negative) - Progress Progress: improved Air Movement: good Progress Note: Is offered Toradol shot but she refused. X-ray chest negative for any acute cardiopulmonary finding or any osseous abnormality. I believe patient has a nterior chest wall strain, recommended taking NSAIDs and outpatient follow-up. Discussed signs symptoms of worsening needing return to ER which she seems understanding. Stable for discharge. 05/07/20 11:04 Counseled pt/family regarding: lab results, diagnosis, need for follow-up, rad results - Departure Departure Disposition: Home Clinical Impression: Anterior chest wall pain Condition: Stable Critical Care Time: No Referrals: TAMARA MAURER MD [Primary Care Provider] - (1-2 days for reevaluation) Instructions: Chest Pain, Chest Pain That Is Not Caused by the Heart (DC) Additional Instructions: Take Tylenol/ibuprofen as needed. Follow-up with primary care for reevaluation. Return to ER for worsening pain, palpitations, shortness of breath, fever or chills etc. Prescriptions: Ibuprofen 600 mg PO Q6HPRN PRN 10 Days #20 tablet PRN Reason: Pain
[2020-05-07 10:02] LABS: Appearance CLEAR (CLEAR); Bilirubin NEGATIVE (NEGATIVE); Blood NEGATIVE Ery/ul (0-5); Glucose NEGATIVE (NEGATIVE); Ketones NEGATIVE (NEGATIVE); Leukocyte Esterase NEGATIVE (NEGATIVE); Mucus SLIGHT /HPF (NEGATIVE); Nitrite NEGATIVE (NEGATIVE); Protein,Urine Dip NEGATIVE (Negative); Specific Gravity 1.008 (1.005-1.025); Urobilinogen NEGATIVE mg/dL (0-1)
--- NOTE | 2020-05-07 10:42 | XRAY ---
Exam: Two-view chest from 05/07/2020. Comparison: None. Indication: 30-year-old female with chest pain since yesterday morning, nonsmoker. Findings: Upright PA and lateral chest films are submitted for evaluation. The heart size and contour are normal. The cydney and mediastinal structures appear unremarkable. There is adequate inflation of the lungs. An 8.5 mm calcified granuloma is seen within the anterior aspect of the right upper lung field. No air space infiltrates, vascular congestion, pneumothorax, or pleural effusion is seen. No acute osseous process is seen. There is a slight rotary convexity of T10-T11 toward the right. Incidentally, there appears be slight anterolisthesis of C4 over C5 and C5 over C6 on the lateral radiograph. This may be due to some ligamentous laxity. The lateral film is slightly rotated. Impression: 1. No acute cardiopulmonary disease is seen. 2. An apparent 8.5 mm calcified granuloma is seen within the anterior aspect of the right upper lung field. 3. Other incidental findings, as discussed above.
[2020-05-07 10:53] VITALS: BP 110/58; PULSE 62
[2020-05-07 11:18] LABS: Amphetamine,Urine NEGATIVE (NEGATIVE); Barbiturate,Urine NEGATIVE (NEGATIVE); Benzodiazepine,Urine NEGATIVE (NEGATIVE); Cocaine,Urine NEGATIVE (NEGATIVE); Methadone,Urine NEGATIVE (NEGATIVE); Opiate,Urine NEGATIVE (NEGATIVE); PCP,Urine NEGATIVE (NEGATIVE); THC,Urine NEGATIVE (NEGATIVE)
== END 2020-05-07 11:16 | disposition home or self-care (01) ==
LOC: ED 09:22
DX: R07.89 Other chest pain (principal)
CPT/HCPCS: 71046; 80307; 81001; 84703; 99284; J1885

== ENCOUNTER 2021-03-21 02:21 | Emergency (ER) | payer OTHER ==
[2021-03-21 02:53] VITALS: BP 126/89; O2SAT 100
--- NOTE | 2021-03-21 03:24 | ERPHSYRPT ---
- History of Present Illness Source: patient Exam Limitations: no limitations Patient Subjective Stated Complaint: Slipped and fell in the cooler at work. Complaining of right hip pain, elbow, wrist and ankle. Triage Nursing Assessment: Patient presents to ED c/o right side pain from slipping and falling at work. States she wants to know if its is ok to return to work at 0800 this morning. Patient does not appear to be in distress at this time. Physician History: 31 yo wf fell at work at 22:30 after slipping in cooler. Pt complains of R hip/R ankle pain which is rated as moderate. She denies LOC/GLASER/Cervical,T, and L-spine pain. Pt denies . Occurred: other (22:30) Reason for Fall: slipped Injuries/Pain Location: lower extremity Loss of Consciousness: no loss of consciousness Quality: aching Severity of Pain-Max: moderate Severity of Pain-Current: moderate Modifying Factors: Improves With: movement Associated Symptoms (Fall): extremity injury, No abdominal pain, No back pain, No confusion, No chest pain, No dizziness, No headache, No lightheadedness, No muscle spasms, No nausea, No neck pain, No ringing in ears, No seizures, No shortness of breath, No slurred speech, No trouble walking, No vomiting, No vision changes Allergies/Adverse Reactions: No Known Drug Allergies Allergy (Verified 03/21/21 02:56) Home Medications: Aripiprazole 10 mg [Abilify 10 MG] 10 mg PO DAILY 05/07/20 [History] Bupropion HCl [Wellbutrin] PO DAILY 03/21/21 [History] Propranolol HCl 10 mg PO 03/21/21 [History] Hx Tetanus, Diphtheria Vaccination/Date Given: Yes Hx Influenza Vaccination/Date Given: Yes Hx Pneumococcal Vaccination/Date Given: No Travel Risk - International Travel Have you traveled outside of the country in past 3 weeks: No - Coronavirus Screening Are you exhibiting any of the following symptoms?: No Close contact with a COVID-19 positive Pt in past 14-21 Days: No - Vaccine Status Have you recieved a Covid-19 vaccination: Yes 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 - Vaccination Dates Date of 2cond Vaccination (if applicable): 03/12/21 Dates if Unknown: 02/10/21,03/12/21 - Review of Systems Constitutional: No Symptoms Eyes: No Symptoms Ears, Nose, & Throat: No Symptoms Respiratory: No Symptoms Cardiac: No Symptoms Genitourinary Symptoms: No Symptoms Skin: No Symptoms Neurological: No Symptoms Psychological: No Symptoms Endocrine: No Symptoms Hematologic/Lymphatic: No Symptoms Immunological/Allergic: No Symptoms - Past Medical History Pertinent Past Medical History: Yes Neurological History: No Pertinent History ENT History: No Pertinent History Cardiac History: No Pertinent History Respiratory History: No Pertinent History Endocrine Medical History: No Pertinent History Musculoskeletal History: Fractures GI Medical History: No Pertinent History History: No Pertinent History Psycho-Social History: Bipolar Female Reproductive Disorders: No Pertinent History Other Medical History: RIGHT ARM BREAK 2009 - Past Surgical History Past Surgical History: Yes Neuro Surgical History: No Pertinent History Cardiac: No Pertinent History Respiratory: No Pertinent History Gastrointestinal: No Pertinent History Genitourinary: No Pertinent History Musculoskeletal: No Pertinent History Female Surgical History: Other Other Surgical History: LAPROSCOPIC IUD REMOVAL 09/2013 , BREAST AUGMENTATION 2017 - Social History Smoking Status: Never smoker Exposure to second hand smoke: No Drug Use: none Patient Lives Alone: No Significant Family History: no pertinent family hx - Female History Hx Last Menstrual Period: 03/21/21 Hx Now: No - Nursing Vital Signs Nursing Vital Signs: Initial Vital Signs Temperature 97.2 F 03/21/21 02:42 Pulse Rate 75 03/21/21 02:42 Blood Pressure 126/89 03/21/21 02:42 O2 Sat by Pulse Oximetry 100 03/21/21 02:42 Pain Scale Pain Intensity 6 - Aniket Coma Score Best Eye Response (Aniket): (4) open spontaneously Best Verbal Response ([place]): (5) oriented Best Motor Response ([place]): (6) obeys commands [place] Total: 15 - Physical Exam General Appearance: no apparent distress Head Injury: no evidence of injury Eye Exam: PERRL/EOMI, eyes nml inspection ENT Exam: airway nml, No evidence of ENT injury, No dental injury, No clear flui d (ears), No clear fluid (nose) Neck Exam: supple (C-spine nttp) Respiratory/Chest Exam: normal breath sounds, No respiratory distress Cardiovascular Exam: regular rate/rhythm, normal peripheral pulses, No murmur Gastrointestinal Exam: soft, normal bowel sounds, No tenderness Back Exam: normal inspection (No T/L-spine TTP) Extremity Exam: pelvis stable, hip tenderness (R hip TTP) Neurologic Exam: alert, oriented x 3, cooperative, correction officer head II-XII nml as tested, normal mood/affect, nml cerebellar function, sensation nml, No motor deficits, No sensory deficit Skin Exam: normal color, warm, dry SpO2 Interpretation: normal SpO2: 100 O2 Delivery: Room Air - Course Nursing assessment & vital signs reviewed: Yes - Radiology Exams Right Ankle X-ray Interpretation: Interpreted by me (No fx or dislocation) Right Hip X-ray Interpretation: Interpreted by me (No fx or dislocation) Ordered Tests: Active Orders 24 hr Category Date Time Status Drake Bandage Application -[facility] STAT Care 03/21/21 04:39 Completed ANKLE (3 VIEWS) Stat Exams 03/21/21 04:26 Taken HIP UNI (2V) INCL PEL IF DONE Stat Exams 03/21/21 04:27 Taken - Progress Progress Note: 03/21/21 03:25 Pt refuses pain meds and wants work excuse - Departure Departure Disposition: Home Clinical Impression: Ankle sprain, Contusion of hip Condition: Stable Critical Care Time: No Referrals: TAMARA MAURER MD [Primary Care Provider] - Instructions: Ankle Sprain (DC), Contusion (DC) Additional Instructions: Drake wrap right ankle for 2-3 days Ice to ankle/hip for 12-24 hours Weight bearing as tolerated Motrin/Tylenol for pain Follow up with family MD for continued pain Forms: Work/School Release Form
[2021-03-21 04:44] VITALS: PULSE 73
--- NOTE | 2021-03-21 09:51 | XRAY ---
Indication: Pain following fall. Comparison: None 2 view right hip demonstrates normal bones, articulation, and soft tissues.
--- NOTE | 2021-03-21 09:51 | XRAY ---
Indication: Pain following fall. Comparison: None 3 view right ankle demonstrates normal bones, articulation, and soft tissues.
== END 2021-03-21 04:50 | disposition home or self-care (01) ==
LOC: ED 02:21
DX: S93.401A Sprain of unspecified ligament of right ankle, initial encounter (principal); M25.571 Pain in right ankle and joints of right foot; S70.01XA Contusion of right hip, initial encounter; M25.551 Pain in right hip; W01.10XA Fall on same level from slipping, tripping and stumbling with subsequent striking against unspecified object, initial encounter; Y92.511 Restaurant or cafe as the place of occurrence of the external cause; Y99.0 Civilian activity done for income or pay
CPT/HCPCS: 73502; 73610; 99284

== ENCOUNTER 2021-04-14 17:42 | Emergency (ER) | payer OTHER ==
[2021-04-14 19:18] VITALS: BP 108/76; PULSE 87; O2SAT 99
[2021-04-14] MEDS ORDERED: Sodium Chloride 0.9% 1000 ML 1,000 ML IV STA (19:18)
[2021-04-14] MEDS ORDERED: Zofran 4 MG/2 ML VIAL IV ONE (19:18)
[2021-04-14 19:32] LABS: Amourphous Crystal FEW /HPF (NEGATIVE); Appearance CLOUDY (CLEAR); Bacteria RARE /HPF (NEGATIVE); Bilirubin NEGATIVE (NEGATIVE); Blood NEGATIVE Ery/ul (0-5); Epithelial Cells RARE /HPF (FEW); Glucose NEGATIVE (NEGATIVE); Ketones NEGATIVE (NEGATIVE); Leukocyte Esterase TRACE (NEGATIVE); Mucus SLIGHT /HPF (NEGATIVE); Nitrite NEGATIVE (NEGATIVE); Protein,Urine Dip NEGATIVE (Negative); Specific Gravity 1.027 (1.005-1.025); Urobilinogen NEGATIVE mg/dL (0-1)
--- NOTE | 2021-04-14 19:38 | ERPHSYRPT ---
- History of Present Illness Time Seen by Provider: 04/14/21 19:18 Source: patient Exam Limitations: no limitations Patient Subjective Stated Complaint: pt reports headache, dizziness and feeling sick, reports she worked in the heat for the last two days and could not comp lete her shift today, states she has been drinking adequate water and not skipping any meals. pt states it is hard to take a deep breath. Triage Nursing Assessment: pt is aox3, pt speech clear and appropriate, pupils perrl, afebrile, resps easy and non labored, cap refill < 3 seconds, radial pulses strong and equal, pt skin pink warm dry. pt ambulatory to trt area with no difficulty. 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 Denies any chest pain but her throat feels sore and it hurts to take a deep breath. Denies any fever or chills. Patient reports she has been trying to keep up with hydration but still feels dehydrated. Denies any sick contact. Denies neck pain, tingling numbness or focal weakness or any other focal neuro symptoms. Timing/Duration: day(s) (1), gradual onset, worse Severity: moderate Associated Symptoms: nausea, headaches, malaise, weakness, No chest pain Allergies/Adverse Reactions: No Known Drug Allergies Allergy (Verified 04/14/21 18:10) Home Medications: Aripiprazole 10 mg [Abilify 10 MG] 10 mg PO DAILY 05/07/20 [History] Bupropion HCl [Wellbutrin] 100 mg PO DAILY 03/21/21 [History] Hx Tetanus, Diphtheria Vaccination/Date Given: Yes Hx Influenza Vaccination/Date Given: No Hx Pneumococcal Vaccination/Date Given: No Immunizations Up to Date: Yes Travel Risk - International Travel Have you traveled outside of the country in past 3 weeks: No - Coronavirus Screening Are you exhibiting any of the following symptoms?: No Close contact with a COVID-19 positive Pt in past 14-21 Days: No - Vaccine Status Have you recieved a Covid-19 vaccination: Yes 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 - Vaccination Dates Dates if Unknown: unk - Review of Systems Constitutional: Fatigue, Weakness Eyes: No Symptoms Ears, Nose, & Throat: No Symptoms Respiratory: No Symptoms Cardiac: No Symptoms Abdominal/Gastrointestinal: Nausea Genitourinary Symptoms: No Symptoms Musculoskeletal: Myalgias Neurological: Dizziness Psychological: No Symptoms Endocrine: No Symptoms Hematologic/Lymphatic: No Symptoms Immunological/Allergic: No Symptoms All Other Systems: Reviewed and Negative - Past Medical History Pertinent Past Medical History: Yes Neurological History: No Pertinent History ENT History: No Pertinent History Cardiac History: No Pertinent History Respiratory History: No Pertinent History Endocrine Medical History: No Pertinent History Musculoskeletal History: Fractures GI Medical History: No Pertinent History History: No Pertinent History Psycho-Social History: Bipolar Female Reproductive Disorders: No Pertinent History Other Medical History: RIGHT ARM BREAK 2009 - Past Surgical History Past Surgical History: Yes Neuro Surgical History: No Pertinent History Cardiac: No Pertinent History Respiratory: No Pertinent History Gastrointestinal: No Pertinent History Genitourinary: No Pertinent History Musculoskeletal: No Pertinent History Female Surgical History: Other Other Surgical History: LAPROSCOPIC IUD REMOVAL 09/2013 , BREAST AUGMENTATION 2017 - Social History Smoking Status: Never smoker Exposure to second hand smoke: Yes Drug Use: none Patient Lives Alone: No Significant Family History: no pertinent family hx - Female History Hx Last Menstrual Period: 03/14/2021 Hx Now: (unkn) - Nursing Vital Signs Nursing Vital Signs: Initial Vital Signs Temperature 98.0 F 04/14/21 17:59 Pulse Rate 96 H 04/14/21 17:59 Respiratory Rate 18 04/14/21 17:59 Blood Pressure 124/82 04/14/21 17:59 O2 Sat by Pulse Oximetry 96 04/14/21 17:59 Pain Scale Pain Intensity 4 - Physical Exam General Appearance: no apparent distress, alert Eye Exam: PERRL/EOMI, eyes nml inspection Ears, Nose, Throat Exam: normal ENT inspection, TMs normal, pharynx normal Neck Exam: normal inspection, non-tender, supple, full range of motion Respiratory Exam: normal breath sounds, lungs clear Cardiovascular Exam: regular rate/rhythm, normal heart sounds, normal peripheral pulses Gastrointestinal/Abdomen Exam: soft, normal bowel sounds, No tenderness Back Exam: normal inspection, normal range of motion Extremity Exam: normal inspection, normal range of motion, pelvis stable Neurologic Exam: alert, oriented x 3, cooperative, film spooler II-XII nml as tested, normal mood/affect, nml cerebellar function, nml station & gait, sensation nml, No motor deficits, No sensory deficit Skin Exam: normal color SpO2 Interpretation: normal SpO2: 99 O2 Delivery: Room Air Ordered Tests: Active Orders 24 hr Category Date Time Status AGAINST MEDICAL ADVISE [Release AMA] OM.NOW Care 04/14/21 19:27 Completed Lead Section Supervisor STAT Care 04/14/21 19:19 Completed EKG-ER Only STAT Care 04/14/21 19:18 Completed IV Insertion STAT Care 04/14/21 19:18 Completed Orthostatic Vital Signs STAT Care 04/14/21 19:18 Completed HCG,QUALITATIVE URINE Stat Lab 04/14/21 19:26 Completed UA W/RFX UR CULTURE Stat Lab 04/14/21 19:26 Completed Medication Summary Discontinued Medications Generic Name Dose Route Start Last Admin Trade Name Freq PRN Reason Stop Dose Admin Sodium Chloride 1,000 mls @ 999 mls/hr 04/14/21 19:18 Sodium Chloride 0.9% 1000 Ml IV 04/14/21 20:18 .Q1H1M STA Ondansetron HCl 4 mg 04/14/21 19:18 Zofran 4 Mg/2 Ml Vial IV 04/14/21 19:19 STAT ONE Lab/Rad Data: Laboratory Results 04/14/21 04/14/21 Range/Units 19:26 19:26 Urine Color YELLOW (YELLOW) Urine Appearance CLOUDY (CLEAR) Urine pH 6.0 (5-6) Ur Specific [place] 1.027 (1.005-1.025) Urine Protein NEGATIVE (Negative) Urine Ketones NEGATIVE (NEGATIVE) Urine Blood NEGATIVE (0-5) Too/ul Urine Nitrite NEGATIVE (NEGATIVE) Urine Bilirubin NEGATIVE (NEGATIVE) Urine Urobilinogen NEGATIVE (0-1) mg/dL Ur Leukocyte Esterase TRACE (NEGATIVE) Urine WBC (Auto) 3-5 (0-5) /HPF Urine RBC (Auto) 3-5 (0-2) /HPF U Epithel Cells (Auto) RARE (FEW) /HPF Urine Bacteria (Auto) RARE (NEGATIVE) /HPF Amorphous Crystals FEW (NEGATIVE) /HPF Urine Mucus (Auto) SLIGHT (NEGATIVE) /HPF Urine Culture Reflexed NO (NO) Urine Glucose NEGATIVE (NEGATIVE) mg/dL Urine HCG, Qual NEGATIVE (Negative) - Progress Progress: unchanged Progress Note: 04/14/21 19:46 31 years old is evaluated for feeling dizzy lightheaded, weak fatigued and nauseated 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 She has a nonfocal neuro exam. Work-up is ordered along with the fluids and Zofran but patient decided to leave as she had to go to work and stated to the nurse that she cannot read anymore. She had a nonfocal neuro exam and stable vitals. - Departure Departure Disposition: AMA Clinical Impression: Heat exhaustion Qualifiers: Encounter type: initial encounter Qualified Code(s): T67.5XXA - Heat exhaustion, unspecified, initial encounter Condition: Stable Critical Care Time: No Referrals: TAMARA MAURER MD [Primary Care Provider] -
== END 2021-04-14 19:25 | disposition left against medical advice (07) ==
LOC: ED 17:42
DX: T67.5XXA Heat exhaustion, unspecified, initial encounter (principal); R42 Dizziness and giddiness; X30.XXXA Exposure to excessive natural heat, initial encounter; Y93.89 Activity, other specified; Y92.89 Other specified places as the place of occurrence of the external cause; Y99.0 Civilian activity done for income or pay
CPT/HCPCS: 81001; 84703; 99283

== ENCOUNTER 2022-05-03 07:08 | Emergency (ER) | payer OTHER ==
[2022-05-03 07:21] VITALS: BP 119/74; PULSE 88; O2SAT 97
--- NOTE | 2022-05-03 07:51 | ERPHSYRPT ---
- History of Present Illness Time Seen by Provider: 05/03/22 07:45 Source: patient Exam Limitations: no limitations Patient Subjective Stated Complaint: sore throat Triage Nursing Assessment: Patient ambulated back to ED and transferred self to bed. Patient A+O X 3. Patient's skin pink, warm and dry. Patient complains of sore throat and cough since yesterday. Patient went to work today and was sent home and told not to come back until she is cleared by a dr. Patient's complains of sore throat 03/11. Throat noted to be red. Patient also complains of scratchy throat and occasional non productive cough. Lungs clear a/p marisabel. O2 98% on room air. Physician History: 32-year-old female presented in the ER with chief complaint of sore throat, congestion since yesterday with occasional nonproductive cough without any di fficulty breathing. No fever or chills reported but does have some body aches. Denies any sick contact. Timing/Duration: yesterday, gradual onset, worse Cough Quality/Degree: mild, dry cough Associated Symptoms: cough, muscle aches, nasal congestion, nasal drainage, sinus infection, sore throat, No fever, No chest pain/soreness, No shortness of breath Allergies/Adverse Reactions: No Known Drug Allergies Allergy (Verified 05/03/22 07:13) Home Medications: buPROPion HCL [Wellbutrin] 100 mg PO DAILY 03/21/21 [History] Hx Tetanus, Diphtheria Vaccination/Date Given: Yes Hx Influenza Vaccination/Date Given: No Hx Pneumococcal Vaccination/Date Given: No Immunizations Up to Date: Yes Travel Risk - International Travel Have you traveled outside of the country in past 3 weeks: No - Coronavirus Screening Are you exhibiting any of the following symptoms?: No Close contact with a COVID-19 positive Pt in past 14-21 Days: No - Vaccine Status Have you recieved a Covid-19 vaccination: Yes Hand Sample Maker: Unknown - Vaccination Dates Dates if Unknown: unk - Review of Systems Constitutional: No Symptoms Eyes: No Symptoms Ears, Nose, & Throat: Nose Congestion, Throat Pain, Throat Swelling Respiratory: Cough Cardiac: No Symptoms Abdominal/Gastrointestinal: No Symptoms Genitourinary Symptoms: No Symptoms Musculoskeletal: No Symptoms Skin: No Symptoms Neurological: No Symptoms Psychological: No Symptoms Endocrine: No Symptoms Hematologic/Lymphatic: No Symptoms Immunological/Allergic: No Symptoms - Past Medical History Pertinent Past Medical History: Yes Neurological History: No Pertinent History ENT History: No Pertinent History Cardiac History: No Pertinent History Respiratory History: No Pertinent History Endocrine Medical History: No Pertinent History Musculoskeletal History: Fractures GI Medical History: No Pertinent History History: No Pertinent History Psycho-Social History: Bipolar Female Reproductive Disorders: No Pertinent History Other Medical History: RIGHT ARM BREAK 2009 - Past Surgical History Past Surgical History: Yes Neuro Surgical History: No Pertinent History Cardiac: No Pertinent History Respiratory: No Pertinent History Gastrointestinal: No Pertinent History Genitourinary: No Pertinent History Musculoskeletal: No Pertinent History Female Surgical History: Other Other Surgical History: LAPROSCOPIC IUD REMOVAL 09/2013 , BREAST AUGMENTATION 2017 - Social History Smoking Status: Never smoker Exposure to second hand smoke: Yes Drug Use: none Patient Lives Alone: No Significant Family History: no pertinent family hx - Female History Hx Last Menstrual Period: April 17, 2022 Hx Now: No - Nursing Vital Signs Nursing Vital Signs: Initial Vital Signs Temperature 97.1 F 05/03/22 07:15 Pulse Rate 88 05/03/22 07:15 Respiratory Rate 18 05/03/22 07:15 Blood Pressure 119/74 05/03/22 07:15 O2 Sat by Pulse Oximetry 97 05/03/22 07:15 Pain Scale Pain Intensity 5 - Physical Exam General Appearance: no apparent distress, alert Eye Exam: PERRL/EOMI Ears, Nose, Throat Exam: TMs normal, moist mucous membranes, pharyngeal erythema Neck Exam: normal inspection, supple, full range of motion, No meningismus Respiratory Exam: normal breath sounds, lungs clear Cardiovascular Exam: regular rate/rhythm, normal heart sounds Back Exam: normal inspection, normal range of motion Extremity Exam: normal inspection, normal range of motion Neurologic Exam: alert, oriented x 3, cooperative Skin Exam: normal color SpO2 Interpretation: normal SpO2: 97 O2 Delivery: Room Air Lab/Rad Data: Laboratory Results 05/03/22 Range/Units 07:20 Influenza Type A Ag Pending Influenza Type B Ag Pending RSV (PCR) Pending SARS-CoV-2 (PCR) Pending Group A Strep Antibody NOT DETECTED (NEGATIVE) - Progress Progress: unchanged Air Movement: good Progress Note: 05/03/22 08:01 She has a negative strep screen. Not in any distress. Probably viral URI/pharyngitis, recommended supportive care. Discussed signs symptoms of worsening needing return to ER which she seems understanding. 05/03/22 08:01 Blood Culture(s) Obtained: No Antibiotics given: No Counseled pt/family regarding: lab results, diagnosis, need for follow-up - Departure Departure Disposition: Home Clinical Impression: Pharyngitis, Viral URI with cough Condition: Stable Critical Care Time: No Referrals: TAMARA MAURER MD [Primary Care Provider] - Follow Up with PCP/3 days Instructions: Viral Pharyngitis (DC) Additional Instructions: Take Tylenol/ibuprofen as needed. Follow-up with primary care for reevaluation. Return to ER for worsening sore throat, difficulty swallowing/breathing/persistent high-grade fever chills etc.
[2022-05-03 07:52] LABS: Group A Strep NOT DETECTED (NEGATIVE)
[2022-05-03 08:03] LABS: INFLUENZA A NEGATIVE (NEGATIVE); INFLUENZA B NEGATIVE (NEGATIVE); RESPIRATORY SYNCTIAL VIRUS NEGATIVE (Negative); SARS-CoV-2 Xpert Express NEGATIVE (NEGATIVE)
== END 2022-05-03 08:15 | disposition home or self-care (01) ==
LOC: ED 07:08
DX: J06.9 Acute upper respiratory infection, unspecified (principal); J02.9 Acute pharyngitis, unspecified; R05.1 Acute cough; M79.10 Myalgia, unspecified site; R09.81 Nasal congestion; Z79.899 Other long term (current) drug therapy
CPT/HCPCS: 0241U; 87651; 99282